=== PATIENT | male | born 1945 | race Caucasian/White ===

== ENCOUNTER → 2020-06-12 | Outpatient (CLI) | payer MEDICARE | END | disposition home or self-care (01) | LOC: CVU 08:20 | PROVIDERS: ATTEND Internal Medicine Cardiovascular Disease | DX: I08.8 Other rheumatic multiple valve diseases (principal); I11.9 Hypertensive heart disease without heart failure; I25.2 Old myocardial infarction; R07.9 Chest pain, unspecified | CPT/HCPCS: 93306; 93356 ==

== ENCOUNTER 2020-08-15 08:33 | Day surgery (SDC) | payer MEDICARE ==
[2020-08-01 09:28] VITALS: BP 157/76
[2020-08-01 10:06] LABS: BASOPHILS % (AUTO) 1 % (0-1); EOSINOPHILS % (AUTO) 2 % (1-7); LYMPHOCYTES % (AUTO) 16 % (22-44); MEAN CORPUSCULAR HEMOGLOBIN 31.2 pg (27.5-34.5); MEAN CORPUSCULAR HGB CONC 34.1 g/dL (33.2-36.2); MEAN PLATELET VOLUME 7.4 fL (7.4-10.4); MONOCYTES % (AUTO) 8 % (2-9); NEUTROPHILS % (AUTO) 74 % (42-75); PLATELET COUNT 214 x10^3/uL (130-400); RED BLOOD COUNT 4.79 x10^6/uL (4.38-5.82); RED CELL DISTRIBUTION WIDTH 14.7 % (9.4-14.8)
[2020-08-01 10:08] LABS: MD NO
[2020-08-01 10:11] LABS: INTERNATIONAL NORMALIZED RATIO 1.11 (0.93-1.1); PROTHROMBIN TIME 11.4 Seconds (9.6-11.5)
[2020-08-01 10:13] LABS: CALCIUM 9.2 mg/dL (8.5-10.1); CREATININE 1.07 mg/dL (0.7-1.3)
[2020-08-01 10:24] LABS: ANION GAP 7 mmol/L (5-15); CHLORIDE 110 mmol/L (98-107)
[~2020-08-15] VITALS: Ht 190.5 cm; Wt 106.8 kg
[~2020-08-15 08:33] MED LIST: AMLO-150 PO; ASCO500C2 PO; ASPI81TA45 PO; ATEN50TA41 PO; ATOR40TA PO; BUPR150T6 PO; CHOL10003 PO; DIPHENHYDRAMINE 50 MG/ML, 1ML ONE; DOXA2TAB PO; FINA5TAB4 PO; ISOS30TA8 PO; LAMO100T5 PO; LIDOCAINE 2%, 20ML ONE; LISI1TAB20 PO; MULT1TAB57 PO; OMEG1CAP23 PO; TIZA4TAB2 PO; TRAZ50TA66 PO; VITA1TAB67 PO
[2020-08-15 09:14] VITALS: BP 122/56
[2020-08-15] MEDS ORDERED: SODIUM CHLORIDE 0.9% 1,000 ML IV SCH (09:30)
[2020-08-15 09:46] LABS: ANION GAP 6 mmol/L (5-15); CALCIUM 8.9 mg/dL (8.5-10.1); CHLORIDE 110 mmol/L (98-107)
[2020-08-15] MEDS ORDERED: LIDOCAINE 2%, 20ML ONE (10:34)
[2020-08-15] MEDS ORDERED: MIDAZOLAM 1 MG/ML, 2ML ONE (10:34)
[2020-08-15] MEDS ORDERED: FENTANYL PF 100 MCG/2ML ONE (10:34)
== END 2020-08-15 14:45 | disposition home or self-care (01) ==
LOC: CACL 08:33
PROVIDERS: ATTEND Internal Medicine Cardiovascular Disease
DX: R94.39 Abnormal result of other cardiovascular function study (principal); I25.118 Atherosclerotic heart disease of native coronary artery with other forms of angina pectoris; I25.84 Coronary atherosclerosis due to calcified coronary lesion; I25.83 Coronary atherosclerosis due to lipid rich plaque; I42.9 Cardiomyopathy, unspecified; I10 Essential (primary) hypertension; E78.5 Hyperlipidemia, unspecified; I25.2 Old myocardial infarction; G47.33 Obstructive sleep apnea (adult) (pediatric); E66.9 Obesity, unspecified; Z68.29 Body mass index [BMI] 29.0-29.9, adult; Z79.82 Long term (current) use of aspirin; Z79.891 Long term (current) use of opiate analgesic; Z79.899 Other long term (current) drug therapy; Z86.718 Personal history of other venous thrombosis and embolism; Z88.0 Allergy status to penicillin; Z88.5 Allergy status to narcotic agent; Z80.0 Family history of malignant neoplasm of digestive organs; Z81.8 Family history of other mental and behavioral disorders
CPT/HCPCS: 36415; 80048; 85025; 85610; 93458; 99156; C1760; C1769; C1894; J1200; J2250; J3010; Q9967

== ENCOUNTER 2020-08-17 15:23 | Emergency (ER) | payer MEDICARE ==
[~2020-08-17] VITALS: Ht 190.5 cm; Wt 106.4 kg
[~2020-08-17 15:23] MED LIST changes: -DIPHENHYDRAMINE 50 MG/ML, 1ML ONE; -LIDOCAINE 2%, 20ML ONE
== END 2020-08-17 19:33 | disposition home or self-care (01) ==
LOC: ED 19:00
DX: S30.1XXA Contusion of abdominal wall, initial encounter (principal); I25.2 Old myocardial infarction; X58.XXXA Exposure to other specified factors, initial encounter; Y93.89 Activity, other specified; Y92.89 Other specified places as the place of occurrence of the external cause; Y99.8 Other external cause status
CPT/HCPCS: 99284

== ENCOUNTER 2020-10-17 10:36 | Outpatient (CLI) | payer MEDICARE ==
[~2020-10-17 10:36] MED LIST changes: -BUPR150T6 PO; +BUPR150T7 PO; +HEPARIN 1,000 UNITS/ML, 10ML ONE
== END 2020-10-17 23:59 | disposition home or self-care (01) ==
LOC: RAD 10:36
PROVIDERS: ATTEND Internal Medicine Cardiovascular Disease
DX: I42.9 Cardiomyopathy, unspecified (principal)
CPT/HCPCS: 78472; A9560; J1644

== ENCOUNTER 2020-11-11 07:18 | Emergency (ER) | payer MEDICARE ==
[~2020-11-11] VITALS: Ht 190.5 cm; Wt 113.1 kg
[~2020-11-11 07:18] MED LIST changes: -HEPARIN 1,000 UNITS/ML, 10ML ONE
[2020-11-11] MEDS ORDERED: ONDANSETRON 2MG/ML, 2ML ONE (07:44)
[2020-11-11] MEDS ORDERED: MORPHINE SULFATE 4 MG/ML, 1ML ONE (07:44)
[2020-11-11 08:00] VITALS: BP 146/66
[2020-11-11] MEDS ORDERED: ONDANSETRON 2MG/ML, 2ML IVPush ONE (08:00)
[2020-11-11] MEDS ORDERED: MORPHINE SULFATE 4 MG/ML, 1ML IVPush PRN (08:00)
[2020-11-11] MEDS ORDERED: SODIUM CHLORIDE FLUSH 10ML SYR IVF ONE (08:00)
--- NOTE | 2020-11-11 08:45 | NUR ---
SPLINT PLACED BY TUB TENDER, [facility] INTACT. DISCHARGE INSTRUCTIONS REVIEWED
== END 2020-11-11 08:58 | disposition home or self-care (01) ==
LOC: ED 08:55
DX: S52.592A Other fractures of lower end of left radius, initial encounter for closed fracture (principal); I25.2 Old myocardial infarction; Z98.61 Coronary angioplasty status; Z88.0 Allergy status to penicillin; Z88.5 Allergy status to narcotic agent; Z87.891 Personal history of nicotine dependence; W18.30XA Fall on same level, unspecified, initial encounter; Y93.89 Activity, other specified; Y92.009 Unspecified place in unspecified non-institutional (private) residence as the place of occurrence of the external cause; Y99.8 Other external cause status
CPT/HCPCS: 29125; 73070; 73110; 96374; 96375; 99284; J2270; J2405